=== PATIENT | male | born 1985 | race Two or more races ===

== ENCOUNTER 2022-10-31 22:33 | Emergency (ER) | payer MEDICAID, OTHER ==
[~2022-10-31] VITALS: Ht 165.1 cm; Wt 95.7 kg
[2022-10-31 23:20] VITALS: BP 119/88
== END 2022-11-01 | disposition left against medical advice (07) ==
LOC: EDBD 22:33 → ER 22:33
DX: R45.851 Suicidal ideations (principal); R44.0 Auditory hallucinations; Z53.21 Procedure and treatment not carried out due to patient leaving prior to being seen by health care provider

== ENCOUNTER 2023-10-20 16:48 | Emergency (ER) | payer MEDICAID ==
[~2023-10-20] VITALS: Ht 182.9 cm; Wt 100.0 kg
[2023-10-20 17:11] VITALS: BP 169/113; PULSE 128; RESP 19; O2SAT 99
[2023-10-20 19:06] LABS: Basophils # (auto) 0 10 ^3/uL (0-0.2); Basophils % (auto) 0.2 % (0.0-2.0); Eosinophils # (auto) 0 10 ^3/uL (0-0.8); Hemoglobin 15.2 g/dL (13.5-17.5); Lymphocytes # (auto) 1.1 10 ^3/uL (0.4-5.4); Lymphocytes % (auto) 10.1 % (10.0-50.0); Mean Corpuscular Hemoglobin 29.5 pg (28.0-32.0); Mean Corpuscular Volume 89.5 fL (80.0-100.0); Monocytes # (auto) 1.2 10 ^3/uL (0-1.3); Neutrophils # (auto) 8.7 10 ^3/uL (1.6-8.6); Neutrophils % (auto) 78.7 % (37.0-80.0); Nucleated Red Blood Cells % 0.1 %; Red Blood Cells 5.14 10^6/uL (4.5-5.90); Red Cell Distribution Width 14.9 % (11.8-14.3)
[2023-10-20 19:29] LABS: Alanine Aminotransferase 25 U/L (7-40); Albumin 4.7 g/dL (3.2-4.8); Alkaline Phosphatase 79 U/L (46-116); Anion Gap 7 (5-15); Aspartate Aminotransferase 37 U/L (13-40); Blood Urea Nitrogen 25 mg/dL (9-23); Calcium 9.8 mg/dL (8.5-10.1); Carbon Dioxide 28 mmol/L (20-30); Chloride 102 mmol/L (98-107); Glucose 82 mg/dL (74-106); Potassium 4.7 mmol/L (3.5-5.1); Sodium 137 mmol/L (136-145)
[2023-10-20 19:30] LABS: Acetaminophen < 2.0 UG/ML (10.0-20.0); Bilirubin, Total 0.7 mg/dL (0.2-1.0); Total Protein 7.5 g/dL (5.7-8.2)
[2023-10-20] MEDS ORDERED: LORazepam 2MG/ML-1ML VIAL IM ONE (19:30)
[2023-10-20 19:32] LABS: Salicylate < 3.0 mg/dL (2.8-20.0)
[2023-10-21] MEDS ORDERED: IOHEXOL 350 MG/ML 100ML IJ ONE (13:03)
== END 2023-10-21 01:00 | disposition left against medical advice (07) ==
LOC: EDBD 16:48 → ER 16:48
DX: F25.9 Schizoaffective disorder, unspecified (principal)
CPT/HCPCS: 36415; 80053; 80320; 80329; 85025; 99283; Q9967

== ENCOUNTER 2023-10-24 03:15 | Emergency (ER) | payer MEDICAID ==
[~2023-10-24] VITALS: Ht 167.6 cm; Wt 96.0 kg
[2023-10-24 03:24] VITALS: BP 125/80; PULSE 106; RESP 18; O2SAT 96
[2023-10-24 04:21] LABS: Basophils # (auto) 0.1 10 ^3/uL (0-0.2); Basophils % (auto) 0.5 % (0.0-2.0); Eosinophils # (auto) 0.1 10 ^3/uL (0-0.8); Hematocrit 44.8 % (41.0-53.0); Hemoglobin 14.9 g/dL (13.5-17.5); Lymphocytes # (auto) 0.8 10 ^3/uL (0.4-5.4); Lymphocytes % (auto) 9.1 % (10.0-50.0); Mean Corpuscular Hemoglobin 29.6 pg (28.0-32.0); Mean Corpuscular Hgb Conc. 33.2 g/dL (32.0-36.0); Mean Corpuscular Volume 89.1 fL (80.0-100.0); Monocytes # (auto) 0.7 10 ^3/uL (0-1.3); Monocytes % (auto) 7.2 % (0.0-12.0); Neutrophils # (auto) 7.6 10 ^3/uL (1.6-8.6); Neutrophils % (auto) 82.2 % (37.0-80.0); Nucleated Red Blood Cells % 0.1 %; Red Blood Cells 5.03 10^6/uL (4.5-5.90); Red Cell Distribution Width 14.8 % (11.8-14.3); White Blood Cell 9.2 10^3/uL (4.4-10.8)
[2023-10-24 04:32] LABS: Chloride 103 mmol/L (98-107); Potassium 3.6 mmol/L (3.5-5.1); Sodium 138 mmol/L (136-145)
[2023-10-24 04:33] LABS: Anion Gap 9 (5-15); Calcium 9.2 mg/dL (8.5-10.1); Carbon Dioxide 26 mmol/L (20-30)
[2023-10-24 04:38] LABS: Blood Alcohol 9.7 mg/dL (<10); Glucose 72 mg/dL (74-106)
[2023-10-24 04:39] LABS: Blood Urea Nitrogen < 5 mg/dL (9-23)
[2023-10-24 04:46] LABS: Acetaminophen < 2.0 UG/ML (10.0-20.0)
[2023-10-24 04:48] LABS: Salicylate < 3.0 mg/dL (2.8-20.0)
== END 2023-10-24 09:42 | disposition left against medical advice (07) ==
LOC: EDBD 03:15 → ER 03:15
DX: R45.851 Suicidal ideations (principal); F20.9 Schizophrenia, unspecified; F10.10 Alcohol abuse, uncomplicated; Y90.8 Blood alcohol level of 240 mg/100 ml or more
CPT/HCPCS: 36415; 80048; 80320; 80329; 85025; 85379

== ENCOUNTER 2024-01-09 17:28 | Emergency (ER) | payer MEDICAID ==
[~2024-01-09] VITALS: Ht 180.3 cm; Wt 86.3 kg
[2024-01-09 18:35] LABS: Basophils # (auto) 0.1 10 ^3/uL (0-0.2); Basophils % (auto) 0.8 % (0.0-2.0); Eosinophils # (auto) 0 10 ^3/uL (0-0.8); Eosinophils % (auto) 0.5 % (0.0-7.0); Hematocrit 42.5 % (41.0-53.0); Hemoglobin 14.1 g/dL (13.5-17.5); Lymphocytes # (auto) 1.8 10 ^3/uL (0.4-5.4); Lymphocytes % (auto) 23.9 % (10.0-50.0); Mean Corpuscular Hgb Conc. 33.1 g/dL (32.0-36.0); Mean Corpuscular Volume 90.7 fL (80.0-100.0); Monocytes # (auto) 0.9 10 ^3/uL (0-1.3); Monocytes % (auto) 12.1 % (0.0-12.0); Neutrophils # (auto) 4.8 10 ^3/uL (1.6-8.6); Neutrophils % (auto) 62.7 % (37.0-80.0); Red Blood Cells 4.69 10^6/uL (4.5-5.90); Red Cell Distribution Width 15.3 % (11.8-14.3); White Blood Cell 7.7 10^3/uL (4.4-10.8)
[2024-01-09 18:44] LABS: Chloride 103 mmol/L (98-107); Potassium 3.7 mmol/L (3.5-5.1); Sodium 137 mmol/L (136-145)
[2024-01-09 18:45] LABS: Anion Gap 7 (5-15); Carbon Dioxide 27 mmol/L (20-30)
[2024-01-09 18:46] LABS: Calcium 9.7 mg/dL (8.5-10.1)
[2024-01-09 18:50] LABS: Glucose 97 mg/dL (74-106)
[2024-01-09 18:51] LABS: BUN/Creatinine Ratio 14.3 (10.0-20.0); Blood Alcohol < 3.0 mg/dL (<10); Blood Urea Nitrogen 17 mg/dL (9-23)
[2024-01-09 20:00] VITALS: PULSE 86; RESP 16; O2SAT 99
[2024-01-10 09:20] VITALS: BP 125/77; PULSE 77; RESP 14; TEMP 97.6; O2SAT 97
[2024-01-10 09:38] LABS: Amphetamine Screen, Urine Pos (NEGATIVE); Barbiturate Scree,Urine Neg (NEGATIVE); Cocaine Screen, Urine Neg (NEGATIVE); Opiate Scree,Urine Neg (NEGATIVE); Phencyclidine Screen, Urine Neg (NEGATIVE)
[2024-01-10 09:39] LABS: Benzodiazephine Screen, Urine Neg (NEGATIVE); Cannabinoid Screen, Urine Pos (NEGATIVE)
== END 2024-01-10 10:00 | disposition left against medical advice (07) ==
LOC: EDBD 17:28 → ER 17:28 → EDUNIT# 17:28 → ER 01-10 09:43
DX: F25.9 Schizoaffective disorder, unspecified (principal); R45.851 Suicidal ideations; F17.210 Nicotine dependence, cigarettes, uncomplicated; F15.90 Other stimulant use, unspecified, uncomplicated; Z79.899 Other long term (current) drug therapy
CPT/HCPCS: 36415; 80048; 80307; 80320; 85025